=== PATIENT | male | born 1970 | race Caucasian/White ===

== ENCOUNTER 2022-08-25 13:58 | Emergency (ER) | payer OTHER, SELFPAY ==
[2022-08-25 14:12] VITALS: BP 116/72; PULSE 74; RESP 17; TEMP 36.9; O2SAT 99; BMI 25.5
--- NOTE | 2022-08-25 15:05 | DI.RAD.S_ITS ---
PROCEDURE: XR CHEST 1V INDICATIONS: Flu like symptoms TECHNIQUE: One view of the chest was acquired. COMPARISON: None. FINDINGS: Surgical changes and devices: None. Lungs and pleura: Lungs are clear. No pleural effusions or pneumothorax. Mediastinum: Mediastinal contours appear normal. Heart size is normal. Bones and chest wall: No suspicious bony lesions. Overlying soft tissues appear unremarkable. IMPRESSION: No acute cardiopulmonary findings Approved by: Minh Sims M.D. on 08/25/2022 at 16:16
--- NOTE | 2022-08-25 15:55 | PC.NURSE ---
Patient notified registration that he was feeling better and wanted to go.
== END 2022-08-25 15:55 | disposition left against medical advice (07) ==
PROVIDERS: Emergency Provider Emergency Medicine
DX: R00.2 Palpitations (principal)
CPT/HCPCS: 71045; 93005; 93010; 99281